=== PATIENT | male | born 1995 | race Caucasian/White ===

== ENCOUNTER 2017-09-10 18:53 | Emergency (ER) | payer OTHER ==
[2017-09-10 18:58] VITALS: TEMP 97.7
[2017-09-10] MEDS ORDERED: fentaNYL 100 MCG/2 ML INJ ONE (19:04)
[2017-09-10] MEDS ORDERED: fentaNYL 100 MCG/2 ML INJ IVP ONE ×2 (19:10→19:11)
--- NOTE | 2017-09-10 19:18 | EDPHY ---
H & P Stated Complaint: Poss R shoulder dislocation. Time Seen by Provider: 09/10/17 18:59 HPI/ROS: Chief complaint: Right shoulder dislocation History of present illness: This is a 22-year-old male who presents to the emergency department concerned he has dislocated his right shoulder. He was throwing a football just prior to arrival when he felt it pop out of place. Since then he has had pain. He has been unable to move it. He believes he dislocated it 1 month ago, lifting weights, he states it was relocated by an equestrian trainer. No history of direct trauma. He denies paresthesias or abnormal coolness in the right upper extremity. No open wounds. No other complaints. - Personal History Current Tetanus/Diphtheria Vaccine: Yes Current Tetanus Diphtheria and Acellular Pertussis (TDAP): Yes - Medical/Surgical History Hx Asthma: No Hx Chronic Respiratory Disease: No Hx Diabetes: No Hx Cardiac Disease: No Hx Renal Disease: No Hx Cirrhosis: No Hx Alcoholism: No Hx HIV/AIDS: No Hx Splenectomy or Spleen Trauma: No Other PMH: Shoulder dislocation. - Social History Smoking Status: Never smoked - Physical Exam Exam: General: Alert, appears uncomfortable Skin: No open wounds or abnormal lesions to the right upper extremity. Musculoskeletal: Obvious deformity to the right upper extremity at the shoulder. He is unable to move it. He can move the elbow, wrist and digits. Vascular: Radial pulses 2+. Capillary refill brisk in the right hand. Neurologic: Sensation intact throughout the right upper extremity. Constitutional: Initial Vital Signs Temperature (C) 36.5 C 09/10/17 18:55 Heart Rate 70 09/10/17 18:55 Respiratory Rate 18 09/10/17 18:55 Blood Pressure 129/80 H 09/10/17 18:55 O2 Sat (%) 97 09/10/17 18:55 O2 Delivery Mode Room Air Allergies/Adverse Reactions: No Known Allergies Allergy (Unverified 03/28/15 00:52) Home Medications: Medication Instructions Recorded [facility] 09/10/17 Medical Decision Making - Diagnostics Imaging Results: Imaging Impressions Shoulder X-Ray 09/10/17 19:01 Impression: Anterior shoulder dislocation. Shoulder X-Ray 09/10/17 19:17 Impression: Good anatomic reduction. Imaging: I viewed and interpreted images myself Procedures: Procedure: Dislocation reduction. The dislocation of the right shoulder was reduced using massage technique without complications. Post reduction the patient's neurovascular exam is normal. Post reduction x-ray demonstrates reduction of the joint to the anatomic position. The procedure was performed by myself. Patient placed in a sling. He remained neurovascularly intact. ED Course/Re-evaluation: Patient seen under the supervision of my secondary supervising physician Dr. Koko Parsons. Patient presents concerned he has a shoulder dislocation. This is confirmed by x-ray. His right arm is neurovascularly intact. The shoulder is relocated. Post reduction shows good alignment. His arm remains neurovascularly intact. He is placed in a sling. Home care is discussed. He is referred to Orthopedics for recheck. Return precautions are given. Patient voiced understanding and agreement with plan. Differential Diagnosis: Included but not limited to contusion, sprain or strain, bony fracture, joint dislocation - Data Points Medications Given: Discontinued Medications Fentanyl (Sublimaze) 100 mcg IVP EDNOW ONE Stop: 09/10/17 19:11 Last Admin: 09/10/17 19:12 Dose: 100 mcg Fentanyl (Sublimaze) 50 mcg IVP EDNOW ONE Stop: 09/10/17 19:12 Last Admin: 09/10/17 19:17 Dose: 50 mcg Ibuprofen (Motrin) 800 mg PO EDNOW ONE Stop: 09/10/17 19:20 Last Admin: 09/10/17 19:24 Dose: 800 mg Ibuprofen (Motrin) 600 mg PO EDNOW ONE Stop: 09/10/17 19:20 Last Admin: 09/10/17 19:19 Dose: Not Given Departure - Departure Disposition: Home, Routine, Self-Care Clinical Impression: Shoulder dislocation Qualifiers: Encounter type: initial encounter Laterality: right Qualified Code(s): S43.004A - Unspecified dislocation of right shoulder joint, initial encounter Condition: Good Instructions: Shoulder Dislocation (ED) Additional Instructions: Follow-up with orthopedics for continued evaluation and care this week Use ibuprofen 600 mg 3 times a day for the next 2-3 days for symptom control Ice the injury, 20 min on, 3 times daily for the next 3 days If symptoms worsen or new symptoms develop return to the emergency room for recheck Referrals: NONE *PRIMARY CARE P,. [Primary Care Provider] - As per Instructions Sergio Bates MD [Medical Doctor] - As per Instructions
[2017-09-10] MEDS ORDERED: IBUPROFEN 600 MG TAB PO ONE ×2 (19:19)
[2017-09-10] MEDS ORDERED: IBUPROFEN 800 MG TAB PO ONE (19:21)
[2017-09-10 19:34] VITALS: BP 141/92; PULSE 77; RESP 16; O2SAT 93
== END 2017-09-10 19:33 | disposition home or self-care (01) ==
PROC: 0RSJXZZ Reposition Right Shoulder Joint, External Approach (ICD-10-PCS; principal; 2017-09-10)
DX: S43.014A Anterior dislocation of right humerus, initial encounter (principal); X50.9XXA Other and unspecified overexertion or strenuous movements or postures, initial encounter; Y99.8 Other external cause status; Y93.61 Activity, american tackle football
CPT/HCPCS: 96374; J3010